=== PATIENT | female | born 1960 | race Caucasian/White ===

== ENCOUNTER 2019-02-08 10:21 | Outpatient (CLI) | payer MEDICARE, OTHER ==
--- NOTE | 2019-02-08 12:12 | Diagnostic Imaging Report ---
DARRIUS DOWNEY [facility] [address] [facility] [address] [address] Report Submission Date: Feb 08, 2019 12:12:04 PM CDT Patient Study Name: DWIGHT LOPEZ Date: Feb 08, 2019 10:40:08 AM CDT Modality Type: DX Gender: F Description: BILAT ANKLES 3 VIEW : 60 Institution: [facility] Physician: DARRIUS DOWNEY Examination: Plain film ankles History: BILAT FEET AND ANKLE PAIN Findings: 3 views of the right and left ankle demonstrates osteopenia. Articular degenerative changes. No fracture or dislocation. Talar dome is intact. Calcaneal spurs. Impression: Osteopenia and articular degenerative changes. No acute appearing cortical abnormality. Electronically signed on Feb 08, 2019 12:12:04 PM CDT by: Almas HADLEY
--- NOTE | 2019-02-08 12:13 | Diagnostic Imaging Report ---
DARRIUS DOWNEY [facility] [address] [facility].[address] [address] Report Submission Date: Feb 08, 2019 12:10:12 PM CDT Patient Study Name: DWIGHT LOPEZ Date: Feb 08, 2019 10:40:08 AM CDT Modality Type: DX Gender: F Description: BILAT FEET 3 VIEW : 60 Institution: [facility] Physician: DARRIUS DOWNEY Examination: Plain film feet History: BILAT FEET AND ANKLE PAIN Findings: 3 views of the right and left foot demonstrates osteopenia. Articular degenerative changes. No fracture or dislocation. Lateral view demonstrates pes planus. Calcaneal spurs. Metallic suture adjacent to the proximal phalanx 1st digit left foot. Vascular calcifications. Impression: Osteopenia and degenerative changes. Pes planus. No acute appearing cortical abnormality. Electronically signed on Feb 08, 2019 12:10:12 PM CDT by: Almas HADLEY
== END 2019-02-08 10:23 ==
LOC: RAD 10:21
PROVIDERS: ATTEND Podiatrist Foot & Ankle Surgery
DX: M79.671 Pain in right foot (principal); M79.672 Pain in left foot; M25.572 Pain in left ankle and joints of left foot